=== PATIENT | female | born 1960 | race Caucasian/White ===

== ENCOUNTER 2020-09-01 06:26 | Outpatient (REF) | payer OTHER, SELFPAY | END 2020-09-01 06:27 | disposition home or self-care (01) | LOC: HO.HMGCLDS 06:26 | PROVIDERS: PCP Internal Medicine; Visit Provider Internal Medicine | DX: Z20.828 Contact with and (suspected) exposure to other viral communicable diseases (principal) | CPT/HCPCS: 87635 ==

== ENCOUNTER 2020-09-19 08:18 | Outpatient (REF) | payer OTHER, SELFPAY | END 2020-09-19 08:19 | disposition home or self-care (01) | LOC: HO.HMGCLDS 08:18 | PROVIDERS: Visit Provider Internal Medicine | DX: Z20.828 Contact with and (suspected) exposure to other viral communicable diseases (principal) | CPT/HCPCS: C9803; U0003 ==

== ENCOUNTER → 2021-03-02 09:39 | Outpatient (BNVA) | payer OTHER, SELFPAY | PROVIDERS: Visit Provider Orthopaedic Surgery ==

== ENCOUNTER → 2021-04-17 13:29 | Outpatient (BNVA) | payer OTHER, SELFPAY | PROVIDERS: Visit Provider Orthopaedic Surgery ==

== ENCOUNTER → 2021-05-01 09:51 | Outpatient (BNVA) | payer OTHER, SELFPAY | PROVIDERS: PCP Internal Medicine; Visit Provider Orthopaedic Surgery | CPT/HCPCS: J1100 ==

== ENCOUNTER 2021-07-07 13:20 | Outpatient (REF) | payer OTHER, SELFPAY ==
--- NOTE | ~2021-07-07 | XR_ITS ---
EXAMINATION: XR SHOULDER, LEFT CLINICAL INFORMATION: Other specific joint derangements of left shoulder. COMPARISON: None TECHNIQUE: AP external rotation, Grashey, scapular Y, and axillary views of the left shoulder. FINDINGS: The glenohumeral joint shows no significant degenerative change or narrowing. Some mild sclerotic changes present near the greater tubercle which can sometimes be seen with rotator cuff disease. No fractures are identified. XR/XR shoulder LT min 2V IMPRESSION: No acute finding. Possible mild rotator cuff disease of left shoulder.
== END 2021-07-07 13:21 | disposition home or self-care (01) ==
LOC: HO.XRAY 13:20
PROVIDERS: PCP Internal Medicine; Visit Provider Physician Assistant
DX: M24.812 Other specific joint derangements of left shoulder, not elsewhere classified (principal); M75.102 Unspecified rotator cuff tear or rupture of left shoulder, not specified as traumatic
CPT/HCPCS: 20610; 73030; J1040

== ENCOUNTER 2022-01-31 08:55 | Outpatient (REF) | payer OTHER, SELFPAY ==
[2022-01-31 09:23] LABS: COVID-19 Test Negative (Negative); IDNOW Serial# 08D9AD1C
== END 2022-01-31 08:56 | disposition home or self-care (01) ==
LOC: HO.LAB 08:55
PROVIDERS: Visit Provider Internal Medicine
DX: Z20.822 Contact with and (suspected) exposure to COVID-19 (principal)
CPT/HCPCS: 87635; C9803

== ENCOUNTER 2023-08-28 08:34 | Outpatient (AMB) | payer OTHER, SELFPAY ==
--- NOTE | 2023-08-28 09:29 | AM.OFFWIN_ITS ---
Intake Vital Signs 08/28/23 09:30 Height 5 ft 2 in Weight 176 lb 8 oz BMI 32.3 BP 140/80 H Blood Pressure Location Lt brachial Position Sitting Pulse 81 Pulse Source Pulse Oximeter Temp 98.0 F Temp Source Temporal Artery Scan Pulse Oximetry (%) 94 Intake Visit Reasons: [employer] Flu like symptoms [phone] Intake Note: pt is here for c/o head cold since saturday Patient Tobacco Use Status: Never used Tobacco Allergies No Known Allergies Allergy (Verified 08/28/23 09:30) Do you need a note to return to daycare/school/sports/work: Yes HPI [employer] Flu like symptoms [phone] HPI Details 62[facility] Reports symptoms started about 5 days ago, and have included scratchy throat, headache, fatigue, nasal congestion. Denies any shortness of breath or GI symptoms. Took a home COVID test which was negative. Denies any fever or chills. Denies known exposure to sick contacts. [facility] Medical History Internal derangement of left shoulder Internal derangement of left knee Hypertension Surgical History History of open reduction and internal fixation (ORIF) procedure Hx of cholecystectomy H/O lumpectomy History of arthroscopy of right shoulder Social History Alcohol intake: current Alcohol intake frequency: holidays/special occasions only Patient Tobacco Use Status: Never used Tobacco Current occupational status: employed Current occupation: right handed/[employer] Review of Systems Const All systems reviewed & are unremarkable except as noted in HPI and below Physical Exam Const General: cooperative and no acute distress HEENT Head: Yes normal to inspection Ears: hearing grossly normal bilaterally and TM's normal bilaterally General nose exam: Normal external nose present Face and sinus: Yes normal facial exam and Yes sinuses nontender Mouth: Normal oral and palatal mucosa present Throat: Yes posterior oropharynx normal Neck Neck: Yes no lymphadenopathy Resp Effort & Inspection: normal respiratory effort Auscultation: clear to auscultation bilaterally Cardio Jugular venous distension: no JVD Palpation: normal PMI Rate: regular rate Rhythm: regular rhythm Skin General skin exam: no rashes or lesions noted Extrem General: Yes capillary refill normal and Yes no clubbing, cyanosis or edema Psych Appearance: grossly normal Mental Status: mental status grossly normal Speech and movement: Normal speech and movement present Assessment & Plan Assessment & Plan (1) Viral upper respiratory illness: Code(s): J06.9 - Acute upper respiratory infection, unspecified Plan: Patient's symptoms consistent with viral illness. Advised symptomatic management, including [id number] cold/flu medications, rest, hydration. If she does not improve with time and conservative measures, or if symptoms worsen/new symptoms develop, she should return to the clinic for further evaluation. She verbalizes understanding and agrees to plan. She declines any viral testing. Note for work provided. Coding Level of Care Code Est Pt Level 3 (96677) Diagnoses Viral upper respiratory illness J06.9
[2023-08-28 09:30] VITALS: BP 140/80; PULSE 81; TEMP 36.7; O2SAT 94; BMI 32.3
== END 2023-08-28 10:04 | disposition home or self-care (01) ==
PROVIDERS: Visit Provider Nurse Practitioner Family
DX: J06.9 Acute upper respiratory infection, unspecified (principal)
CPT/HCPCS: 99213